=== PATIENT | female | born 1935 | race Caucasian/White ===

== ENCOUNTER 2019-02-12 07:35 | Day surgery (SDC) | payer MEDICARE, BC ==
[~2019-02-12] VITALS: Ht 160 cm; Wt 82.0 kg
[~2019-02-12 07:35] MED LIST: BUPIVACAINE/EPI 0.5% 1:200K ONE; CARV-39 PO; CHOL10003 PO; ELECTROLYTE PO; LEVO50TA5 PO; LOSA100T14 PO; MAGN400T36 PO; POTA10TA31 PO
[2019-02-12 08:04] VITALS: BP 203/82
[2019-02-12] MEDS ORDERED: FENTANYL PF 250 MCG/5ML ONE (08:05)
[2019-02-12] MEDS ORDERED: ONDANSETRON 2MG/ML, 2ML ONE ×2 (08:06→09:52)
[2019-02-12] MEDS ORDERED: SUCCINYLCHOLINE 20 MG/ML, 10ML ONE (08:06)
[2019-02-12] MEDS ORDERED: LACTATED RINGERS 1,000 ML IV SCH (08:06)
[2019-02-12] MEDS ORDERED: ROCURONIUM 10MG/ML,5ML ONE (08:06)
[2019-02-12] MEDS ORDERED: PROPOFOL 10 MG/ML, 50ML ONE (08:28)
[2019-02-12] MEDS ORDERED: CEFAZOLIN 1,000 MG ONE (08:28)
[2019-02-12] MEDS ORDERED: PROPOFOL 10 MG/ML, 20ML ONE (08:28)
[2019-02-12] MEDS ORDERED: MORPHINE SULFATE 4 MG/ML, 1ML IVPush PRN (08:30)
[2019-02-12] MEDS ORDERED: ONDANSETRON ODT 8 MG PO PRN (08:30)
[2019-02-12] MEDS ORDERED: EPHEDRINE 50 MG/ML, 1ML IVPush PRN (08:30)
[2019-02-12] MEDS ORDERED: ONDANSETRON 2MG/ML, 2ML IV PRN (08:30)
[2019-02-12] MEDS ORDERED: OXYcodone 5 MG/5 ML ORAL.SOL UDC PO PRN ×2 (08:30→09:30)
[2019-02-12] MEDS ORDERED: EPHEDRINE 50 MG/ML, 1ML IM PRN (08:30)
[2019-02-12] MEDS ORDERED: DIPHENHYDRAMINE 50 MG/ML, 1ML IVPush PRN (08:30)
[2019-02-12] MEDS ORDERED: PROMETHAZINE 25 MG/ML, 1ML IV PRN ×3 (08:30→10:01)
[2019-02-12] MEDS ORDERED: FENTANYL PF 100 MCG/2ML ONE (09:33)
[2019-02-12] MEDS ORDERED: OXYcodone 5 MG/5 ML ORAL.SOL UDC ONE (09:33)
[2019-02-12] MEDS ORDERED: METOPROLOL 1 MG/ML, 5ML ONE (09:37)
[2019-02-12] MEDS: FENTANYL PF 100 MCG/2ML IV PRN ×2 (09:39→09:59)
[2019-02-12] MEDS: METOPROLOL 1 MG/ML, 5ML IV PRN ×2 (09:40→09:52)
[2019-02-12] MEDS ORDERED: PROMETHAZINE 25 MG/ML, 1ML ONE (09:55)
[2019-02-12] MEDS ORDERED: hydrALAzine 20 MG/ML, 1ML ONE (10:25)
[2019-02-12] MEDS ORDERED: hydrALAzine 20 MG/ML, 1ML IV PRN (10:30)
== END 2019-02-12 13:00 | disposition home or self-care (01) ==
LOC: OUT 07:35
PROVIDERS: ATTEND Surgery Vascular Surgery
DX: K80.10 Calculus of gallbladder with chronic cholecystitis without obstruction (principal); I10 Essential (primary) hypertension; G47.33 Obstructive sleep apnea (adult) (pediatric); Z79.890 Hormone replacement therapy; Z79.899 Other long term (current) drug therapy; Z88.2 Allergy status to sulfonamides; Z88.8 Allergy status to other drugs, medicaments and biological substances; Z90.710 Acquired absence of both cervix and uterus; Z98.890 Other specified postprocedural states; Z82.49 Family history of ischemic heart disease and other diseases of the circulatory system; Z83.3 Family history of diabetes mellitus
CPT/HCPCS: 47562; 88304; J0330; J0360; J0690; J2405; J2550; J2704; J3010; J7120